=== PATIENT | male | born 1985 | race Caucasian/White ===

== ENCOUNTER 2022-11-06 23:45 | Inpatient (IN) | payer OTHER ==
[~2022-11-06] VITALS: Ht 175.3 cm; Wt 186.0 kg
[2022-11-07] VITALS (7 sets, daily range): BP systolic 88–150; BP diastolic 51–77
--- NOTE | 2022-11-07 | NUR ---
ARRIVED VIA [facility]/FROM [facility]. TO ROOM 10
[2022-11-07] MEDS ORDERED: AMLODIPINE BESY10 MG PO (00:20)
[2022-11-07] MEDS ORDERED: LISINOPRIL20 M1 PO (00:21)
[2022-11-07] MEDS ORDERED: BUPROPION HCL150 MG PO ×3 (00:21→17:26)
[2022-11-07] MEDS ORDERED: ABILIFY10 MG PO ×3 (00:22→17:32)
[2022-11-07] MEDS ORDERED: WELLBUTRIN XL300 MG PO (00:23)
[2022-11-07] MEDS ORDERED: ATORVASTATIN CA20 MG PO ×2 (00:25→08:13)
[2022-11-07] MEDS ORDERED: VITAMIN D-32000 UNI1 PO (00:25)
[2022-11-07] MEDS ORDERED: CARBAMAZEPINE200 M1 PO (00:26)
[2022-11-07] MEDS ORDERED: CYMBALTA60 MG PO (00:27)
[2022-11-07 00:51] LABS: BASO% 0.2 % (0-3); HEMATOCRIT 44.9 % (39.0-50.0); HEMOGLOBIN 14.4 g/dl (14.0-18.0); IMMATURE GRANULOCYTES 0.5 % (0.0-5.0); LYMPH% 2.7 % (15-41); MEAN CORPUSCULAR HGB 31.4 pG CALC (26.0-32.0); MEAN CORPUSCULAR HGB CONC 32.1 g/dL CAL (32.0-36.0); NEUT# 16.7 thou/uL (1.82-7.42); NEUT% 93.6 % (42-76); RED BLOOD COUNT 4.58 mill/uL (4.70-6.10)
[2022-11-07 01:06] LABS: ALBUMIN 4.2 g/dL (3.2-5.0); ALKALINE PHOSPHATASE 62 u/l (38-126); ANION GAP 12 (6-22 (CALC)); BILIRUBIN, TOTAL 0.4 mg/dL (0.2-1.3); BUN 24 mg/dL (9-20); BUN/CREATININE RATIO 18 (12-20 (CALC)); CARBON DIOXIDE 26 mmol/l (22-30); CHLORIDE 100 mmol/l (95-108); CREATININE 1.4 mg/dL (0.7-1.3); GFR FOR AFR.AMER. > 60 ML/MIN (>=60 (CALC)); GFR OTHER RACES 57 ML/MIN (>=60 (CALC)); POTASSIUM 4.1 mmol/l (3.5-5.1); SGOT/AST 34 u/l (17-59); SODIUM 134 mmol/l (137-146); TOTAL PROTEIN 7.5 g/dL (6.3-8.2)
--- NOTE | 2022-11-07 02:20 | NUR ---
IVF CHANGED, PT SLEEPING. HR ELEVATED. TEMP CHECKED 104.2 TEMPORAL. NOTIFIED. TYLENOL/MOTRIN GIVEN. PT TO CT VIA STRETCHER WITH TECH AND GUARDS.
--- NOTE | 2022-11-07 03:16 | NUR ---
PT RETURNED FROM CT. IV SITE LOOKS MOTTLED BUT IN NOT TENDER. WILL TRY FOR A NEW IV SITE.
--- NOTE | 2022-11-07 03:31 | NUR ---
UPDATED [facility]/NURSE JAMES
--- NOTE | 2022-11-07 03:55 | NUR ---
PT SLEEPING ON LEFT SIDE. IVF INFUSING.
--- NOTE | 2022-11-07 05:40 | NUR ---
PT INCONT OF LIQUID STOOL. PT UP TO BEDSIDE TO GET HIMSELF CLEANED UP AND FRESH GOWN. MOVED TO ROOM 7 FOR HSKG SAKE. URINE AND STOOL SAMPLE SENT TO LAB. STOOL IS LIQUID.
[2022-11-07 06:11] LABS: URINE BILIRUBIN - DIPSTICK NEGATIVE (NEGATIVE); URINE BLOOD DIPSTICK TRACE-INTACT (NEGATIVE); URINE COLOR YELLOW; URINE GLUCOSE - DIPSTICK NEGATIVE (NEGATIVE); URINE KETONE NEGATIVE (NEGATIVE); URINE LEUK ESTERASE NEGATIVE (NEGATIVE); URINE PROTEIN - DIPSTICK NEGATIVE (NEG-TRACE); URINE SPECIFIC GRAVITY <=1.005; URINE UROBILINOGEN - DIPSTICK 0.2 E.U./dL (0.2)
[2022-11-07 06:16] LABS: URINE NITRITE - DIPSTICK NEGATIVE (Negative)
--- NOTE | 2022-11-07 07:00 | NUR ---
CARE RESUMED. PT IS RESTING, GUARDS NEARBY.
[2022-11-07] MEDS ORDERED: CARBAMAZEPIN200 MG PO ×2 (08:15→17:31)
[2022-11-07] MEDS ORDERED: PROTONIX40 M2 PO (08:17)
[2022-11-07] MEDS ORDERED: BUPROPION HCL100 M2 PO (08:18)
--- NOTE | 2022-11-07 10:29 | NUR ---
REPORT GIVEN TO PATRICIA MENDOZA HAS ALL BELONGINGS.
--- NOTE | 2022-11-07 10:47 | NUR ---
PT ADMISSION VITALS TEMP-99.2 RESP-19/E&U BP-149/78 P-111 O2-97 WT-186.6 KG
--- NOTE | 2022-11-07 10:47 | NUR ---
PT ARRIVED VIA STRETCHER TO MED SURGE WITH SCREEN AND CYCLONE REPAIRER. ORIENTATED PT TO ROOM AND CALL GUTIERREZ SYSTEM. PT ABLE TO AMBULAE VIA STANDY BY SISIST TO BED. ADMISSION ASSESSMENT COMPLETE. FALL/SAFTEY PRECAUTION IN PLACE. CALL LIGHT WITHIN REACH
--- NOTE | 2022-11-07 15:56 | NUR ---
TEMP 104 DATA EXAMINATION CLERK NOTFIED. MEDICATED. ICE PACKS PROVIDED. PT A&OX3. FACE FLUSHED.BREATHING EVEN AND UNLABORED. FALL/SAFTEY PRECAUTION IN PLACE. CALL LIGHT WITHIN REACH
--- NOTE | 2022-11-07 16:42 | NUR ---
TEMP 102 ORAL TEMP. PT A&OX3. ICE PACKS READJUSTED FALL/SAFTEY PRECAUITON IN PLACE, CALL LIGHT WITHIN REACH
--- NOTE | 2022-11-07 19:15 | NUR ---
REPORT RECEIVED FROM [facility] NURSE. PT IS LYING IN BED WITH GAURDS AT BEDSIDE. PT HAS BEEN RUNNING FEVERS. LAT TEMP CHECK AT 1850 WITH IT BEING 98.6 D[address]TE. HAS REDNESS ON LEFT LEG. PICTURES TAKEN AND PLACED IN CHART. PT HAS NO PAIN AT THIS TIME. CALL LIGHT WITHIN REACH AND SAFETY PRECAUTIONS IN PLACE.
--- NOTE | 2022-11-07 19:24 | NUR ---
TEMP 98.6
[2022-11-08 00:58] VITALS: BP 140/81
--- NOTE | 2022-11-08 01:08 | NUR ---
PT IS LYING IN BED WITH 2 GUARDS IN ROOM. PT HAS NO COMPLAINTS OF PAIN AT THIS TIME. CALL LIGHT WITHIN REACH AND SAFETY PRECAUTIONS IN PLACE.
[2022-11-08 03:21] VITALS: BP 135/93
--- NOTE | 2022-11-08 04:15 | NUR ---
PT IS SLEEPING IN BED COMFORTABLY WITH TWO GUARDS PRESENT AT BEDSIDE. PT SHOWS NO SIGNS OF ANY VISIBLE PAIN. CALL LIGHT WITHIN REACH AND SAFETY PRECAUTIONS IN PLACE.
[2022-11-08 06:40] VITALS: BP 135/81
--- NOTE | 2022-11-08 08:00 | NUR ---
PT RESTING IN BED WATCHING TV. WITH 2 GUARDS AT BEDSIDE. ASSESSMENT COMPLETED. PT BREATHING EVEN AND UNLABORED. REDNESS LOCATED TO THE LEFT LOWER LEG. WARM TO TOUCH. SHOW HOST OR HOSTESS NOTFIED. PEDAL PULSE PALPABLE. TELE MONITR IN PLACE, CONTINOUS MONITORING PER ED. FALL/SAFTEY PRECAUTION IN PLACE. CALL LIGHT WITHIN REACH.
[2022-11-08 09:40] LABS: ALBUMIN 3.8 g/dL (3.2-5.0); ALKALINE PHOSPHATASE 60 u/l (38-126); ANION GAP 12 (6-22 (CALC)); BILIRUBIN, TOTAL 0.3 mg/dL (0.2-1.3); BUN 13 mg/dL (9-20); BUN/CREATININE RATIO 18 (12-20 (CALC)); CARBON DIOXIDE 28 mmol/l (22-30); CHLORIDE 102 mmol/l (95-108); CREATININE 0.8 mg/dL (0.7-1.3); GFR FOR AFR.AMER. > 60 ML/MIN (>=60 (CALC)); GFR OTHER RACES > 60 ML/MIN (>=60 (CALC)); MAGNESIUM 1.9 mg/dL (1.6-2.3); POTASSIUM 4.5 mmol/l (3.5-5.1); SGOT/AST 37 u/l (17-59); SODIUM 138 mmol/l (137-146); TOTAL PROTEIN 6.8 g/dL (6.3-8.2)
[2022-11-08 09:41] LABS: BASO% 0.2 % (0-3); EOS% 0.1 % (0-8); HEMATOCRIT 43.2 % (39.0-50.0); HEMOGLOBIN 13.6 g/dl (14.0-18.0); IMMATURE GRANULOCYTES 0.3 % (0.0-5.0); LYMPH% 8.1 % (15-41); MEAN CELL VOLUME 98.6 fL CALC (80.0-100.0); MEAN CORPUSCULAR HGB 31.1 pG CALC (26.0-32.0); MEAN CORPUSCULAR HGB CONC 31.5 g/dL CAL (32.0-36.0); MONO% 5.3 % (2-13); NEUT# 10.97 thou/uL (1.82-7.42); RED BLOOD COUNT 4.38 mill/uL (4.70-6.10); RED CELL DISTRI WIDTH 12.9 % (11.5-15.5)
[2022-11-08 10:47] VITALS: BP 116/82
--- NOTE | 2022-11-08 10:50 | NUR ---
PT STATES NAUSEA, MEDICATED SEE EMAR. STATES NO OTHER NEEDS AT THIS TIME. FALL/SAFTEY PRECAUTION IN PLACE. CALL LIGHT WITHIN REACH
--- NOTE | 2022-11-08 12:00 | NUR ---
PT DRINKING LUNCH WITH 2 GUARDS AT BEDSIDE. STATES NO NEEDS AT THIS TIME. FALL/SAFTEY PRECAUTION I NPLACE. CALL LIGHT WITHIN REACH
[2022-11-08 14:55] VITALS: BP 123/77
--- NOTE | 2022-11-08 16:00 | NUR ---
PT WATCHING TV WITH GUARDS AT BEDSIDE. STATES NO NEEDS AT THIS TIME. FALL/SAFTEY PRECAUTION IN PLACE. CALL LIGHT WITHIN REACH
[2022-11-08 19:20] VITALS: BP 134/82
--- NOTE | 2022-11-08 19:30 | NUR ---
Report received from Adarsh Diallo Rn.
--- NOTE | 2022-11-08 20:20 | NUR ---
PATIENT RESTING, GUARDS AT BEDSIDE. NO APPARENT DISTRESS NOTED. CALL LIGHT AND BEDSIDE TABLE WITHIN REACH.
[2022-11-09] VITALS (8 sets, daily range): BP systolic 105–146; BP diastolic 51–90
--- NOTE | 2022-11-09 00:30 | NUR ---
ABX CHANGED TO CLINDAMYCIN, ANTIBIOTIC HUNG AT THIS TIME.
--- NOTE | 2022-11-09 01:47 | NUR ---
UPDATE GIVEN TO M[facility]
--- NOTE | 2022-11-09 04:20 | NUR ---
PATIENT RESTING COMFORTABLY, NO APPARENT DISTRESS NOTED. RESPIRATIOSN EVEN AND UNLABORED, RISE AND FALL OF CHEST NOTED. CALL LIGHT AND BEDSIDE TABLE WITHIN REACH.
[2022-11-09 05:51] LABS: BASO% 0.2 % (0-3); EOS% 0.3 % (0-8); HEMATOCRIT 39.5 % (39.0-50.0); HEMOGLOBIN 12.4 g/dl (14.0-18.0); IMMATURE GRANULOCYTES 0.3 % (0.0-5.0); LYMPH% 7.4 % (15-41); MEAN CELL VOLUME 97.8 fL CALC (80.0-100.0); MEAN CORPUSCULAR HGB 30.7 pG CALC (26.0-32.0); MEAN CORPUSCULAR HGB CONC 31.4 g/dL CAL (32.0-36.0); MONO% 6.2 % (2-13); NEUT# 9.53 thou/uL (1.82-7.42); NEUT% 85.6 % (42-76); RED BLOOD COUNT 4.04 mill/uL (4.70-6.10); RED CELL DISTRI WIDTH 12.9 % (11.5-15.5)
[2022-11-09 06:33] LABS: BUN 16 mg/dL (9-20); BUN/CREATININE RATIO 23 (12-20 (CALC)); CHLORIDE 105 mmol/l (95-108); CREATININE 0.7 mg/dL (0.7-1.3); GFR FOR AFR.AMER. > 60 ML/MIN (>=60 (CALC)); GFR OTHER RACES > 60 ML/MIN (>=60 (CALC)); MAGNESIUM 1.8 mg/dL (1.6-2.3); POTASSIUM 3.8 mmol/l (3.5-5.1); SGOT/AST 32 u/l (17-59); SODIUM 137 mmol/l (137-146)
[2022-11-09 06:34] LABS: ALBUMIN 3.5 g/dL (3.2-5.0); ALKALINE PHOSPHATASE 61 u/l (38-126); BILIRUBIN, TOTAL 0.3 mg/dL (0.2-1.3); TOTAL PROTEIN 6.4 g/dL (6.3-8.2)
[2022-11-09 06:36] LABS: ANION GAP 11 (6-22 (CALC)); CARBON DIOXIDE 25 mmol/l (22-30)
--- NOTE | 2022-11-09 07:30 | NUR ---
SHIFT CHANGE REPORT AT BEDSIDE, PT AWAKE ALERT AND ORIENTED RESTING IN BED, C/O ACHING HEADACHE @ 7/10, IVF INFUSING, CALL GUTIERREZ IN REACH AND BED LOCKED IN LOWEST POSITION, PT IS SCHACKLED TO BED WITH 2 GUARDS IN ROOM.
--- NOTE | 2022-11-09 12:21 | NUR ---
HEADACHE REPORTED PREVIOUSLY HAS BEEN PARTIALLY RELIEVED, NO OTHER COMPLAINS AT THIS TIME.
--- NOTE | 2022-11-09 16:53 | NUR ---
NURSE ISI FROM FACILITY CALLED TO INQUIRE ABOUT PT, UPDATES GIVEN AND WILL CONTINUE TO MONITOR. PT REPORTED HE HAD 3 STOOLS TODAY.
--- NOTE | 2022-11-09 19:30 | NUR ---
REPORT RECEIVED FROM Nolan RICHTER RN
--- NOTE | 2022-11-09 20:00 | NUR ---
PATIENT RESTING COMOFORTABLY, NO CURRENT DISTRESS NOTED. GUARDS AT BEDSIDE. PATIENT DISCONNECTED FROM IV AND TELE OFF IN PREPARATION FOR SHOWER. SHOWER SET UP FROM PRIOR SHIFT. PATIENT WILL CALL WHEN READY, PIT FURNACE OPERATOR NOTIFIED CALL LIGHT AND BEDSIDE TABLE WITHIN REACH.
--- NOTE | 2022-11-09 22:15 | NUR ---
PATIENT STATES THAT IT IS LATE AND HE WILL NOT BE HAVING A SHOWER, RECCONECTED PT TO IVF.
--- NOTE | 2022-11-10 | NUR ---
PATIENT RESTING, NO APPARENT DISTRESS NOTED. RESPIRATIONS EVEN AND UNLABORED, RISE AND FALL OF CHEST NOTED. CALL LIGHT AND BEDSIDE TABLE WITHIN REACH. GUARDS REMAINS AT BEDSIDE.
--- NOTE | 2022-11-10 03:38 | NUR ---
UPDATE PROVIDED TO CORRECT CARE.
[2022-11-10 04:00] VITALS: BP 125/85
--- NOTE | 2022-11-10 04:15 | NUR ---
PATIENT RESTNG COMOFORTABLY, NO APPARENT DISTRESS, RESPIRATIONS EVEN AND UNLABORED, RISE AND FALL OF CHEST NOTED CALL LIGHT WITHIN REACH. GUARDS AT BEDSIDE.
[2022-11-10 05:48] LABS: BASO% 0.3 % (0-3); EOS% 0.5 % (0-8); HEMATOCRIT 38.7 % (39.0-50.0); HEMOGLOBIN 12.3 g/dl (14.0-18.0); IMMATURE GRANULOCYTES 0.6 % (0.0-5.0); LYMPH% 7.9 % (15-41); MEAN CELL VOLUME 97.2 fL CALC (80.0-100.0); MEAN CORPUSCULAR HGB 30.9 pG CALC (26.0-32.0); MEAN CORPUSCULAR HGB CONC 31.8 g/dL CAL (32.0-36.0); MONO% 8.3 % (2-13); NEUT# 8.46 thou/uL (1.82-7.42); NEUT% 82.4 % (42-76); RED BLOOD COUNT 3.98 mill/uL (4.70-6.10)
[2022-11-10 06:13] LABS: ALBUMIN 3.7 g/dL (3.2-5.0); ALKALINE PHOSPHATASE 84 u/l (38-126); ANION GAP 12 (6-22 (CALC)); BUN 15 mg/dL (9-20); BUN/CREATININE RATIO 24 (12-20 (CALC)); CARBON DIOXIDE 26 mmol/l (22-30); CHLORIDE 103 mmol/l (95-108); CREATININE 0.6 mg/dL (0.7-1.3); GFR FOR AFR.AMER. > 60 ML/MIN (>=60 (CALC)); GFR OTHER RACES > 60 ML/MIN (>=60 (CALC)); POTASSIUM 3.6 mmol/l (3.5-5.1); SGOT/AST 34 u/l (17-59); SODIUM 137 mmol/l (137-146)
[2022-11-10 06:14] LABS: BILIRUBIN, TOTAL 0.5 mg/dL (0.2-1.3)
[2022-11-10 06:27] VITALS: BP 132/82
--- NOTE | 2022-11-10 07:00 | NUR ---
BEDSIDE SHIFT REPORT, PT AWAKE ALERT AND ORIENTED RESTING IN BED, NO C/O DISCOMFORT AT THIS TIME, IVF INFUSING, TELE MONITOR IN PLACE, CALL GUTIERREZ IN REACH AND BED LOCKED IN LOWEST POSITION, RIGHT LEG SHACKLED TO BED AND 2 GUARDS IN ROOM.
[2022-11-10 10:59] VITALS: BP 135/81
[2022-11-10] MEDS ORDERED: ROCEPHIN 1 GM1 GM IV (11:22)
[2022-11-10] MEDS ORDERED: CLINDAMYCIN IV (11:22)
--- NOTE | 2022-11-10 12:00 | NUR ---
SLIGHTLY ELEVATED TEMP, PT C/O BEINF HOT, TEMP IN ROM IS UNUSUALLY WARM, PT ENCOURAGED TO REMOVE BLANKET AND LIGHT SHEET OFFERED.
[2022-11-10] MEDS ORDERED: CLINDAMYCIN HY150 MG PO (14:30)
[2022-11-10 14:46] VITALS: BP 132/72
--- NOTE | 2022-11-10 16:15 | NUR ---
Discharge instructions given. Patient verbalizes understanding of same. Discharged in stable condition via Wheelchair to *Other with *Other. All belongings sent with pt.
== END 2022-11-10 16:42 | disposition designated cancer center or children's hospital (05) | DRG 872 ==
LOC: ED 23:45 → ED-I 11-07 08:16 → ED 11-07 09:43 → MS2 11-07 09:44
PROVIDERS: Family Medicine; Nurse Practitioner Family; ADMIT Internal Medicine; ATTEND Internal Medicine
DX: A41.9 Sepsis, unspecified organism (principal); A04.2 Enteroinvasive Escherichia coli infection; Z68.44 Body mass index [BMI] 60.0-69.9, adult; L03.116 Cellulitis of left lower limb; A03.9 Shigellosis, unspecified; I10 Essential (primary) hypertension; F31.9 Bipolar disorder, unspecified; G47.30 Sleep apnea, unspecified; Z20.822 Contact with and (suspected) exposure to COVID-19
CPT/HCPCS: J1650; J1956; Q9967; S0077